=== PATIENT | male | born 1960 | race Caucasian/White ===

== ENCOUNTER 2021-06-12 13:51 | Emergency (ER) | payer BC ==
[~2021-06-12] VITALS: Ht 182.9 cm; Wt 97.1 kg
[~2021-06-12 13:51] MED LIST: ALEVE220 M1 PO; HYDROCHLOROTHIA25 MG PO; LIPITOR TAB 2020 MG PO; PRILOSEC OTC20 MG PO; VIBRAMYCIN100 MG PO
[2021-06-12 15:23] LABS: HEMOGLOBIN 15.9 gm/dl (14.0-17.5); RED BLOOD COUNT 4.83 M/UL (4.20-5.50); WHITE BLOOD COUNT 5.9 K/UL (4.5-11.0)
[2021-06-12 15:47] LABS: BUN/CREATININE RATIO 16 (0-10)
== END 2021-06-12 17:45 | disposition home or self-care (01) ==
LOC: ER1 13:51
PROVIDERS: Physician Assistant
DX: Z23 Encounter for immunization (principal); U07.1 COVID-19; I10 Essential (primary) hypertension; K21.9 Gastro-esophageal reflux disease without esophagitis
CPT/HCPCS: 71045; 80053; 82550; 82553; 83874; 84484; 85025; 99283; M0243